=== PATIENT | male | born 1975 | race Caucasian/White ===

== ENCOUNTER 2017-01-18 09:11 | Outpatient (CLI) | payer OTHER ==
--- NOTE | 2017-01-18 13:53 | Diagnostic Imaging Report ---
MILEY RUBIO [facility] [address] [facility] [address] [id number] Report Submission Date: Jan 18, 2017 10:21:01 AM PERSONNEL TECHNICIAN Patient Study Name: ANNALISE SANTIZO Date: Jan 18, 2017 9:50:31 AM PERSONNEL TECHNICIAN Modality Type: US Gender: M Description: US EXT NON VASC LIMITED : 79 Institution: [facility] Physician: MILEY RUBIO Examination: Ultrasound extremity History: Lump right axilla. Comparison exams: None provided Findings: Sonographic evaluation of the right axilla in the region of the reported palpable density with contralateral comparison imaging obtained. Isodense density measuring 2.9 cm maximally. No evidence for fluid characteristics centrally. Impression: Likely soft tissue lipoma. No solid mass identified. Electronically signed on Jan 18, 2017 10:21:01 AM PERSONNEL TECHNICIAN by: Barrett JOSHI
== END 2017-01-18 09:12 ==
LOC: RAD 09:11
PROVIDERS: ATTEND Physician Assistant
DX: R59.9 Enlarged lymph nodes, unspecified (principal)
CPT/HCPCS: 76882

== ENCOUNTER 2017-03-04 07:04 | Day surgery (SDC) | payer OTHER ==
[2017-03-04] MEDS ORDERED: MIDAZOLAM HCL 2 MG/2 ML VIAL ONE (08:00)
[2017-03-04] MEDS ORDERED: LIDOCAINE 1%/EPINEPHRINE 20ML VIAL IJ ONE (08:00)
[2017-03-04] MEDS ORDERED: SALINE FLUSH 10 ML DISP.SYRIN IVF ONE (08:00)
[2017-03-04] MEDS ORDERED: PROPOFOL 500 MG/50 ML VIAL IV ONE (08:00)
[2017-03-04] MEDS ORDERED: LACTATED RINGERS 1,000 ML IV.SOLN IV ONE (08:00)
--- NOTE | 2017-03-05 13:35 | Operative Note ---
SURGEON: Willian Beckford MD ANESTHESIA: MAC anesthesia with local. ESTIMATED BLOOD LOSS: Less than 5 mL. COMPLICATIONS: None. PREOPERATIVE DIAGNOSIS: Right axillary lipoma. POSTOPERATIVE DIAGNOSIS: Right axillary lipoma. PROCEDURE PERFORMED: Excision of right axillary lipoma. INDICATIONS FOR PROCEDURE: This is a 41-year-old man with an enlarging lipoma in the right axilla who presents for excision. DESCRIPTION OF PROCEDURE: Patient was brought to the operating room. The right axilla was shaved, prepped , and draped. MAC anesthesia was administered by the pest control worker. Local anesthesia was injected in the skin overlying the mass. A small skin incision was made and the lipoma was removed from the subcutaneous tissues intact without difficulty. There was no bleeding. The skin was closed with a 3-0 Vicryl running suture. Steri-Strips and a dressing were placed over the incision. The patient was taken to the recovery room in good condition. FINDINGS: A 3.5 cm lipoma. MTDD
== END 2017-03-04 07:05 ==
LOC: OPSURG 07:04
PROVIDERS: ATTEND Colon & Rectal Surgery
DX: D17.39 Benign lipomatous neoplasm of skin and subcutaneous tissue of other sites (principal)
CPT/HCPCS: 11404; 88304; J2250; J2704; J7030; J7120; S1016

== ENCOUNTER 2017-03-18 10:11 | Outpatient (CLI) | payer OTHER | END 2017-03-18 10:12 | LOC: OUT 10:11 | PROVIDERS: ATTEND Colon & Rectal Surgery | DX: Z09 Encounter for follow-up examination after completed treatment for conditions other than malignant neoplasm (principal); D17.39 Benign lipomatous neoplasm of skin and subcutaneous tissue of other sites | CPT/HCPCS: G0463 ==

== ENCOUNTER 2017-11-03 09:22 | Outpatient (CLI) | payer OTHER ==
--- NOTE | 2017-11-03 19:28 | Diagnostic Imaging Report ---
MANUELITO THOMPSON [facility] [id number] [facility] [address] [place], [place]. [address] Report Submission Date: Nov 03, 2017 10:26:34 AM CDT Patient Study Name: ANNALISE SANTIZO Date: Nov 03, 2017 9:37:17 AM CDT Modality Type: CT Gender: M Description: CT ABD PELVIS W/O CO : 79 Institution: [facility] Physician: MANUELITO THOMPSON Examination: CT Abdomen/pelvis History: CT A/P W/O, LEFT SIDE FLANK/PELVIC PAIN FOR ABOUT A WEEK, HX OF STONES (Hx) Comparison exams: None available Technique: CT Abdomen/pelvis without IV protocol. Findings: Liver, spleen, adrenals, pancreas, kidneys and gallbladder are without gross irregularity given exam technique. No gallstone. 2 to 3 mm right calyceal calcifications. No suspicious left renal calcifications. Ureters are nondilated in their course through the abdomen and pelvis. No central calcifications. Bladder margin within normal limits. Abdominal aorta without aneurysm or peripheral atherosclerotic disease. Cardiac silhouette is not enlarged. No pericardial effusion. Bowel unopacified limiting evaluation. No abnormal dilation. Stool within the large bowel limiting sensitivity. No mesenteric inflammatory changes or free fluid. Appendix not visualized. Osseous structures within normal limits. Lung bases without infiltrate. No effusion. Impression: No acute upper abdominal organ inflammatory process. No abnormal bowel dilation or inflammation. Moderate large bowel stool - constipation. No gallstone. Right nephrolithiasis. No abnormal ureteric dilation. No lung base consolidation or effusion. Electronically signed on Nov 03, 2017 10:26:34 AM CDT by: Barrett JOSHI
== END 2017-11-03 09:24 ==
LOC: LAB 09:22
PROVIDERS: ATTEND Family Medicine
DX: R10.9 Unspecified abdominal pain (principal); R97.20 Elevated prostate specific antigen [PSA]
CPT/HCPCS: 36415; 74176; 84153